=== PATIENT | female | born 1950 | race Caucasian/White ===

== ENCOUNTER → 2016-05-04 | Day surgery (SDC) | payer OTHER ==
[~2016-05-04] MED LIST: BUPIVACAINE/EPINEPHRINE 0.5% PF 30 ML VIAL ONE; CLON.5 PO; CO Q 10 PO; FISH1000 PO; LACTATED RINGER'S 1000 ML INJ 1,000 ML ONE; LEXA20TA PO; LIDOCAINE 1%/EPINEPHrine 1:100,000 SOLN 20 ML VIAL ONE; MIDAZOLAM HCL 2 MG/2 ML VIAL ONE; NEOMYCIN/POLYMYXIN/BACITRACIN OINT 15 GM TUBE ONE; ONDANSETRON HCL 4 MG/2 ML VIAL IV PUSH ONE; PROPOFOL 200 MG/20 ML AMP IV ONE; REDPOW2 PO; SODIUM CHLOR 0.9% 250 ML INJ 250 ML IV ONE; VANCOMYCIN 500 MG VIAL ONE
--- NOTE | 2016-05-04 13:48 | TN ---
cc: RENE ROJAS M.D. DATE OF SURGERY: 05/04/2016 PREOPERATIVE DIAGNOSIS Previously infected sebaceous cyst, right mandibular jaw line. POSTOPERATIVE DIAGNOSIS Previously infected sebaceous cyst, right mandibular jaw line. PROCEDURE Excision of old sebaceous cyst, right mandibular jaw line, 5 x 2.5 cm single-layer closure. ANESTHESIA TIVA. SURGEON Dr. Rojas AUTHOR AGENT Miss Stephania Smith, advanced registered nurse practitioner The CABINET MAKER was present from beginning to the end of the case assisting in all portions of the procedure. It was necessary to have this individual in the room to assist in the above surgical procedure. The surgical procedure was assisted by the CABINET MAKER. The CABINET MAKER presence was necessary throughout the case for appropriate retraction, dissection, visualization, and resection of the important anatomical structures during the surgical procedure. The CABINET MAKER was assisting throughout the entirety of the operation. The skill set of the CABINET MAKER is medically and surgically necessary to safely complete the surgical procedure. During the surgical case the operating room service tech/welder was working instrument table and passing instruments to the attending surgeon and CABINET MAKER The CABINET MAKER was directly assisting the operating surgeon and involved in the technical aspects of the surgical case. INDICATION This is a pleasant 65-year-old female who had a fairly impressive abscess in her right mandibular area that was drained in the office and treated with antibiotics. It was MRSA. She was then healed in with packing. She subsequently has a scar and a remnant of the cyst that needs to be excised. Plans were made for above. DETAILS OF PROCEDURE The patient was taken to the operating room and placed in supine position. After anesthesia a timeout is done and antibiotics given. We make an elliptical incision measuring 5 x 2.5 cm along the jawline to completely excise the previous scar and underlying remnant of the sebaceous cyst. We then irrigate. We then close the skin with a 4-0 interrupted nylon suture. Sterile bandage is applied. The patient tolerated the procedure well and had no immediate post-op complication. Rene Rojas MD JDB/LISBETH /1:35 PM /1:40 PM TERRY
== END | disposition home or self-care (01) ==
LOC: ESDC 12:17
PROVIDERS: ATTEND Surgery
DX: L72.3 Sebaceous cyst (principal)
CPT/HCPCS: 00300; 11446; 88305; J2250; J2405; J3010; J3370; J7050; J7120; 88304